=== PATIENT | female | born 1965 | race Hispanic/Latino ===

== ENCOUNTER 2016-08-27 02:23 | Emergency (ER) | payer BC, OTHER ==
[2016-08-27 02:31] VITALS: BMI 25.4
[2016-08-27 02:32] VITALS: RESP 18; O2SAT 99
[2016-08-27] MEDS ORDERED: Sodium Chloride 0.9% 1,000 ML IV STA (02:42)
--- NOTE | 2016-08-27 02:42 | ED PDOC ---
Arrival/HPI - General Chief Complaint: Back Pain Time Seen by Provider: 08/27/16 02:28 Historian: Patient - History of Present Illness Narrative History of Present Illness (Text): 08/27/16 02:37 Jennie Garvey is a 51 year old female, with a history of appendectomy, presents to the emergency department complaining of right flank/low back pain since 7 p.m. yesterday. Patient reports that she took 2 Advil for the pain for minimal relief. Reports that pain is worsening and has become constant. Seems worse with movement otherwise no relieving or exacerbating factors. Denies any urinary complaints. Denies any fever, chills, headache, dizziness, nausea, vomiting, diarrhea, or any other complaints at this time. Time/Duration: 4-6 hours Symptom Onset: Gradual Symptom Course: Worsening Severity Level: Moderate Activities at Onset: Light Context: Home Past Medical History - Provider Review Nursing Documentation Reviewed: Yes - Psychiatric Hx Substance Use: No Family/Social History - Physician Review Nursing Documentation Reviewed: Yes Family/Social History: No Known Family HX Smoking Status: no Hx Alcohol Use: No Hx Substance Use: No Allergies/Home Meds Allergies/Adverse Reactions: Allergies No Known Allergies Allergy (Verified 08/27/16 02:31) Review of Systems - Physician Review All systems were reviewed & negative as marked: Yes - Review of Systems Constitutional: Normal. absent: Fatigue, Fevers Respiratory: Normal. absent: SOB, Cough Cardiovascular: Normal. absent: Chest Pain Gastrointestinal: Normal. absent: Abdominal Pain, Diarrhea, Nausea, Vomiting Musculoskeletal: Back Pain (right flank pain ) Neurological: Normal. absent: Headache, Dizziness Psychiatric: Normal Physical Exam Vital Signs Reviewed: Yes Vital Signs Temp Pulse Resp BP Pulse Ox 08/27/16 05:45 98.7 F 82 18 158/87 H 99 08/27/16 02:31 97.5 F L 60 18 168/92 H 99 Temperature: Afebrile Blood Pressure: Hypertensive Pulse: Regular Respiratory Rate: Normal Appearance: Positive for: Well-Appearing, Non-Toxic, Comfortable Pain Distress: None Mental Status: Positive for: Alert and Oriented X 3 - Systems Exam Head: Present: Atraumatic, Normocephalic Pupils: Present: PERRL Conjunctiva: Present: Normal Respiratory/Chest: Present: Clear to Auscultation, Good Air Exchange. No: Respiratory Distress, Accessory Muscle Use Cardiovascular: Present: Regular Rate and Rhythm, Normal S1, S2. No: Murmurs Abdomen: Present: Normal Bowel Sounds. No: Tenderness, Distention, Peritoneal Signs Back: Present: CVA Tenderness Upper Extremity: Present: Normal Inspection. No: Cyanosis, Edema Lower Extremity: Present: Normal Inspection. No: Edema Neurological: Present: GCS=15, CN II-XII Intact, Speech Normal Skin: Present: Warm, Dry, Normal Color. No: Rashes Psychiatric: Present: Alert, Oriented x 3, Normal Insight, Normal Concentration Medical Decision Making ED Course and Treatment: Progress Notes: 08/27/16 04:38 CT abdomen pelvis reviewed: IMPRESSION: 1. There has been little change from 07/01/2015. No acute process is identified. 2. Enlarged uterus which is likely a fibroid uterus. 3. Minimal nonobstructing left renal calculus. 4. Mild colonic stool suggesting constipation. The pt denied any more pain medication after the toradol, although she continued to have pain. I discussed several other options for pain control but she wished to be discharged. I have discussed the results and plan with the patient, who expresses understanding. Patient given the opportunity to ask question, all questions were answered and there is agreement with the plan to discharge the patient home. Patient was instructed to follow up with physician/ clinic in 1-2 days or return if symptoms persist/worsen or new concerning symptoms arise. - Lab Interpretations Microbiology Results: Microbiology Results 08/27/16 02:40 Urine Urine Culture - Final No Growth (<1,000 CFU/ML) Lab Results: 08/27/16 02:40 08/27/16 02:40 Lab Results 08/27/16 02:40: WBC 5.8, RBC 5.04, Hgb 14.2, Hct 41.9, MCV 83.1, MCH 28.2, MCHC 33.9, RDW 15.1 H, Plt Count 210, MPV 11.6 H, Gran % 56.1, Lymph % (Auto) 36.1 H , [place] % (Auto) 5.9, Eos % (Auto) 1.6, Baso % (Auto) 0.3, Gran # 3.25, Lymph # 2.1, [place] # 0.3, Eos # 0.1, Baso # 0.02, Sodium 140, Potassium 3.8, Chloride 101 , Carbon Dioxide 29, Anion Gap 14, BUN 15, Creatinine 0.7, Est GFR ( Amer ) > 60, Est GFR (Non-Af Amer) > 60, Random Glucose 111 H, Calcium 9.2, Total Bilirubin 1.2, AST 31, ALT 35, Alkaline Phosphatase 89, Total Protein 8.3, Albumin 4.2, Globulin 4.1, Albumin/Globulin Ratio 1.0 L, Lipase 122, Urine Color Yellow, Urine Appearance Slight-cloudy, Urine pH 7.0, Ur Specific [place] 1.020, Urine Protein 30 H, Urine Glucose (UA) Negative, Urine Ketones Negative, Urine Blood Negative, Urine Nitrate Negative, Urine Bilirubin Negative, Urine Urobilinogen 0.2, Ur Leukocyte Esterase Negative, Urine RBC 0 - 2, Urine WBC 0 - 2, Ur Epithelial Cells 1 - 3, Amorphous Sediment Few, Urine Bacteria Rare I have reviewed the lab results: Yes - RAD Interpretation Narrative RAD Interpretations (Text): EXAM: CT Abdomen and Pelvis Without Intravenous Contrast FINDINGS: Lower thorax: Minimal hiatal hernia. ABDOMEN: Liver: Unremarkable. Gallbladder and bile ducts: Unremarkable. No calcified stones. No ductal dilation. Pancreas: Unremarkable. No ductal dilation. Spleen: Unremarkable. No splenomegaly. Adrenals: Unremarkable. No mass. Kidneys and ureters: Minimal nonobstructing left renal calculus in the lower pole. Stomach and bowel: Mild colonic stool. No obstruction. No mucosal thickening. Appendix: Multiple surgical clips and sutures at the cecal tip consistent with prior appendectomy. PELVIS: Bladder: Unremarkable. No stones. Reproductive: The uterus measures 7.6 cm in its AP dimension with a slightly lobular posterior contour. ABDOMEN and PELVIS: Intraperitoneal space: Unremarkable. No free air. No significant fluid collection. Bones/joints: No acute fracture. No dislocation. Soft tissues: Unremarkable. Vasculature: Unremarkable. No abdominal aortic aneurysm. Lymph nodes: Unremarkable. No enlarged lymph nodes. IMPRESSION: 1. There has been little change from 07/01/2015. No acute process is identified. 2. Enlarged uterus which is likely a fibroid uterus. 3. Minimal nonobstructing left renal calculus. 4. Mild colonic stool suggesting constipation. Radiology Orders: 08/27/16 02:42 ABD & PELVIS W/O PO OR IV CONT [CT] Stat Utility Gelatin Maker: Radiologist - Medication Orders Current Medication Orders: Discontinued Medications Bupivacaine HCl (Marcaine 0.25%) 20 ml IJ STAT STA Stop: 08/27/16 05:18 Last Admin: 08/27/16 05:19 Dose: 20 ML Bupivacaine HCl (Marcaine 0.5%) Confirm Administered Dose 30 ml .ROUTE .STK-MED ONE Stop: 08/27/16 05:19 Sodium Chloride (Sodium Chloride 0.9%) 1,000 mls @ 999 mls/hr IV .Q1H1M STA Stop: 08/27/16 03:42 Last Admin: 08/27/16 02:50 Dose: 999 MLS/HR eMAR Start Stop Document 08/27/16 02:50 KEVIN (Rec: 08/27/16 02:50 [id number] Intravenous Solution Start Date 08/27/16 Start Time 02:50 End Date 08/27/16 End time 03:50 Total Infusion Time 60 Ketorolac Tromethamine (Toradol) 10 mg IVP STAT STA Stop: 08/27/16 02:43 Last Admin: 08/27/16 02:49 Dose: IVP Administration Document 08/27/16 02:49 KEVIN (Rec: 08/27/16 02:49 [id number] Charges for Administration # of IVP Administrations 1 Ketorolac Tromethamine (Toradol) Confirm Administered Dose 30 mg .ROUTE .STK- MED ONE Stop: 08/27/16 02:46 Last Admin: 08/27/16 02:49 Dose: 10 MG Disposition/Present on Arrival - Present on Arrival Any Indicators Present on Arrival: No History of DVT/PE: No History of Uncontrolled Diabetes: No Urinary Catheter: No History of Decub. Ulcer: No History Surgical Site Infection Following: None - Disposition Have Diagnosis and Disposition been Completed?: Yes Diagnosis: Back pain Disposition: HOME/ ROUTINE Disposition Time: 05:40 Condition: STABLE Discharge Instructions (ExitCare): Acute Low Back Pain (ED) Additional Instructions: Please follow up with your doctor. Return to the ER for any worsening symptoms or for any other concerns. Prescriptions: Cyclobenzaprine [Cyclobenzaprine HCl] 10 mg PO TID PRN #20 tab PRN Reason: Pain, Severe (8-10) Naproxen [Naprosyn] 500 mg PO BID #10 tablet
[2016-08-27 02:50] LABS: ADD MANUAL DIFF? NO
[2016-08-27 03:19] LABS: BASO # 0.02 K/mm3 (0.0-2.0); BASO % 0.3 % (0.0-3.0); EOS # 0.1 (0.0-0.7); EOS % 1.6 % (1.5-5.0); GRAN # 3.25 (1.4-6.5); GRAN % 56.1 % (50.0-68.0); HEMATOCRIT 41.9 % (36.0-48.0); LYMPH # 2.1 (1.2-3.4); LYMPH % 36.1 % (22.0-35.0); MEAN CELL VOLUME 83.1 fL (80.0-105.0); MEAN CORPUSCULAR HEMOGLOBIN 28.2 pg (25.0-35.0); MEAN CORPUSCULAR HGB CONC 33.9 g/dl (31.0-37.0); MEAN PLATELET VOLUME 11.6 fl (7.0-11.0); MONO # 0.3 (0.1-0.6); MONO % 5.9 % (1.0-6.0); PLATELET COUNT 210 10^3/uL (120.0-450.0); RED CELL DISTRIBUTION WIDTH 15.1 % (11.5-14.5); WHITE BLOOD COUNT 5.8 10^3/ul (4.5-11.0)
[2016-08-27 03:20] LABS: URINE BILIRUBIN NEGATIVE (NEGATIVE); URINE BLOOD NEGATIVE (NEGATIVE); URINE GLUCOSE (UA) NEGATIVE (NEGATIVE); URINE KETONE NEGATIVE (NEGATIVE); URINE LEUKOCYTE ESTERASE NEGATIVE Leu/uL (NEGATIVE); URINE PROTEIN 30 mg/dL (<30 mg/dL); URINE UROBILINOGEN 0.2 E.U./dL (<1 E.U./dL)
[2016-08-27 03:21] LABS: URINE APPEARANCE SLIGHT-CLOUDY (CLEAR); URINE COLOR YELLOW (YELLOW)
[2016-08-27 03:24] LABS: URINE BACTERIA RARE (NEG); URINE RBC 0 - 2 /hpf (0-2); URINE WBC 0 - 2 /hpf (0-6)
[2016-08-27 03:25] LABS: URINE AMORPHOUS SEDIMENT FEW
[2016-08-27 03:40] LABS: ALKALINE PHOSPHATASE 89 U/L (38-133); ALT/SGPT 35 U/L (7-56); AST/SGOT 31 U/L (15-39); BILIRUBIN,TOTAL 1.2 mg/dL (0.2-1.3); BLOOD UREA NITROGEN 15 mg/dL (7-21); CALCIUM 9.2 mg/dL (8.4-10.5); CARBON DIOXIDE 29 mmol/L (21-33); CHLORIDE 101 mmol/L (98-107); GFR AFRICAN-AMERICAN > 60; GLUCOSE,RANDOM 111 mg/dL (70-110); LIPASE 122 U/L (23-300); POTASSIUM 3.8 mmol/L (3.6-5.0); SODIUM 140 mmol/L (132-148); TOTAL PROTEIN 8.3 g/dL (5.8-8.3)
[2016-08-27] MEDS ORDERED: Bupivacaine 0.25% Inj(30mL) IJ STA (05:17)
[2016-08-27] MEDS ORDERED: Bupivacaine 0.5% Inj(30mL) ONE (05:18)
[2016-08-27 05:46] VITALS: BP 158/87; PULSE 82; TEMP 98.7
--- NOTE | 2016-08-27 08:41 | CT ---
PROCEDURE: CT Abdomen and Pelvis without Oral or IV contrast. HISTORY: flank pain COMPARISON: CT abdomen and pelvis without IV contrast performed 07/01/15 TECHNIQUE: Contiguous axial images of the abdomen and pelvis. No oral or IV contrast administered. Coronal and Sagittal reformats generated and reviewed. This CT exam was performed using 1 or more of the falling dose reduction techniques: Automated exposure control, adjustment of the MAA and/or kV according to patient size, and/or use of iterative reconstruction technique Radiation dose: Total exam DLP = 385.41 mGy-cm. FINDINGS: There is limited evaluation of the solid organs without the administration of IV contrast. LOWER THORAX: No visible consolidation, pleural effusion, or pneumothorax. Small hiatal hernia/ distal esophageal wall thickening. LIVER: Unremarkable unenhanced appearance. GALLBLADDER AND BILE DUCTS: Unremarkable unenhanced appearance. PANCREAS: Unremarkable unenhanced appearance. SPLEEN: Unremarkable unenhanced appearance. ADRENALS: Unremarkable unenhanced appearance. KIDNEYS AND URETERS: Punctate nonobstructing left renal calculus, lower pole. No hydronephrosis or obstructing renal calculus identified. BLADDER: The urinary bladder appears unremarkable. REPRODUCTIVE: Lobulated uterus consistent with fibroids. APPENDIX: Surgical clips are noted at the expected location of the appendix near the cecal tip consistent with prior appendectomy. Correlate with surgical history. BOWEL: The stomach is nondistended. Lack of oral contrast limits evaluation for bowel pathology. The bowel loops appear within normal limits of caliber without evidence of intestinal obstruction. Moderate constipation. PERITONEUM: No significant free fluid. No definite free air. LYMPH NODES: No bulky lymphadenopathy identified. VASCULATURE: Scattered atherosclerotic calcifications. Grossly unremarkable unenhanced appearance. BONES: Mild scoliosis. OTHER FINDINGS: None. IMPRESSION: Probable fibroid uterus. Punctate nonobstructing left renal calculus. Moderate constipation. Preliminary impression was provided by [employer].
== END 2016-08-27 05:43 | disposition home or self-care (01) ==
LOC: ED 02:23
DX: M54.5 Low back pain (principal)
CPT/HCPCS: 74176; 80053; 81001; 83690; 85025; 87086; 96360; 99283; J1885; J7040